=== PATIENT | female | born 2000 | race Caucasian/White ===

== ENCOUNTER 2022-10-29 02:00 | Emergency (ER) | payer SELFPAY ==
[~2022-10-29] VITALS: Ht 146 cm; Wt 81.6 kg
[2022-10-29] MEDS ORDERED: ONDANSETRON 4 MG (ZOFRAN) ORAL DISSOLVE TAB PO STA (02:28)
[2022-10-29] MEDS ORDERED: IBUPROFEN 800 MG (MOTRIN) TAB PO ONE (02:30)
--- NOTE | 2022-10-29 02:34 | ED Cough/URI ---
General Chief Complaint: Fever-Adult/Adol Stated Complaint: FEVER Nursing Triage Note: PATIENT COMPLAINT OF FEVER AROUND 103 AT HOME. STATES SHE TOOK TYLENOL AT MIDNIGHT. STATES SHE HAS BEEN AROUND PEOPLE THIS HOLIDAY WHO WERE SICK. Source: patient Exam Limitations: no limitations History of Present Illness Date Seen by Provider: Oct 29, 2022 Time Seen by Provider: 02:17 Initial Comments 22-year-old female patient complaining of fever up to 103.7, nasal congestion, sore throat, dry cough, headache and myalgia for the last 24 hours associated with diarrhea and 3 episodes of vomiting. Patient states she was not able to tolerate Tylenol and her temperature went up to 103.7 and decided to come to ER. Patient has sick contacts at home and recently attended [employer] parties with reported sick people after the republican. Patient denies , shortness of breath, earache, urinary symptoms. Severity/Quality: dry cough Associated Symptoms: cough, fever/chills, headache, muscle aches, nasal congestion, sore throat Allergies and Home Medications Allergies Coded Allergies: No Known Drug Allergies (Unverified , 10/29/22) Patient Home Medication List Home Medication List Reviewed: Yes Review of Systems Review of Systems Constitutional: see HPI EENTM: see HPI Respiratory: see HPI Cardiovascular: see HPI Gastrointestinal: see HPI Genitourinary: see HPI Musculoskeletal: see HPI Skin: see HPI Psychiatric/Neurological: See HPI Hematologic/Lymphatic: See HPI Immunological/Allergic: see HPI All Other Systems Reviewed Negative Unless Noted: Yes Past Iwubbum-Zhpmih-Ckgkft Hx Patient Social History Tobacco Use?: No Use of E-Cig and/or Vaping dev: No Substance use?: Yes Substance type: Marijuana Substance frequency: Couple times a week Immunizations Up To Date Influenza Vaccine Up-to-Date: No; Not Current First/Initial COVID19 Vaccinat: no Second COVID19 Vaccination Maycol: no Physical Exam Vital Signs - First Documented 10/29/22 02:10 Temp 38.2 Pulse 125 Resp 20 B/P (MAP) 151/85 (107) O2 Delivery Room Air Capillary Refill : Less Than 3 Seconds Height: '" Weight: lbs. oz. kg; 38.00 BMI Method: General Appearance: WD/WN, mild distress Eyes: Bilateral Eye Normal Inspection, Bilateral Eye PERRL, Bilateral Eye EOMI HEENT: PERRL/EOMI, normal ENT inspection, TMs normal, pharyngeal erythema, other (Nasal congestion) Neck: non-tender, full range of motion, supple, normal inspection Respiratory: chest non-tender, lungs clear, normal breath sounds, no respiratory distress, no accessory muscle use Cardiovascular: no edema, no gallop, no JVD, no murmur, tachycardia Gastrointestinal: normal bowel sounds, non tender, soft, no organomegaly, no pulsatile mass Extremities: normal range of motion, non-tender Neurologic/Psychiatric: no motor/sensory deficits, alert, normal mood/affect, oriented x 3 Skin: normal color, warm/dry Lymphatic: no adenopathy Progress/Results/Core Measures Suspected Sepsis SIRS Temperature: Pulse: 125 Respiratory Rate: 20 Blood Pressure 151 /85 Mean: 107 Results/Orders Lab Results Laboratory Tests Test 10/29/22 02:14 Range/Units Influenza Type A (RT-PCR) Detected H Not Detecte Influenza Type B (RT-PCR) Not Detected Not Detecte SARS-CoV-2 RNA (RT-PCR) Not Detected Not Detecte My Orders Orders - RONNA CORBETT MD Covid 19 Inhouse Test (10/29/22 02:15) Influenza A And B By Pcr (10/29/22 02:15) Isolation Central Supply Req (10/29/22 02:15) Ondansetron Oral Dissolve Tab (Zofran (10/29/22 02:28) Ibuprofen Tablet (Motrin Tablet) (10/29/22 02:30) Rx-Oseltamivir Caps (Rx-Tamiflu Caps) (10/29/22 02:48) Rx-Ondansetron Po (Rx-Zofran Po) (10/29/22 02:48) Medications Given in ED Current Medications Medications Dose Ordered Sig/Tona Route Start Time Stop Time Status Last Admin Dose Admin Ibuprofen 800 mg ONCE ONCE PO 10/29/22 02:30 10/29/22 02:31 DC 10/29/22 02:33 800 MG Vital Signs/I&O 10/29/22 02:10 Temp 38.2 Pulse 125 Resp 20 B/P (MAP) 151/85 (107) O2 Delivery Room Air Capillary Refill : Less Than 3 Seconds 2 Blood Pressure Mean: 107 Progress Note : Progress Note 22-year-old female patient with reported nausea, vomiting, diarrhea, fever up to 103.7, nasal congestion and sore throat, dry cough, headache and myalgia for the last 24 hours with temperature of 100.7 and on arrival to ER. Patient treated with Zofran and ibuprofen in ER. Patient had positive flu test and Tamiflu an Zofran was dispensed . Patient advised to increase fluid intake and take alternate Tylenol and ibuprofen. Departure Impression Primary Impression: Influenza A Additional Impressions: Cough Qualified Codes: R05.1 - Acute cough Fever Qualified Codes: R50.81 - Fever presenting with conditions classified elsewhere Disposition: 01 HOME, SELF-CARE Condition: Improved Departure-Patient Inst. Decision time for Depature: 02:51 Referrals: NO,LOCAL PHYSICIAN (PCP/Family) Primary Care Physician Patient Instructions: Flu, Adult (DC), Cough in Adults, Cough, Adult ED, Fever, Adult (DC) Add. Discharge Instructions: Take Tylenol and ibuprofen alternate every 4 hours for fever and pain Drink plenty of liquid Follow-up with your primary care physician return to ER as needed All discharge instructions reviewed with patient and/or family. Voiced understanding. RONNA CORBETT MD Oct 29, 2022 02:34
[2022-10-29] MEDS ORDERED: RX-ONDANSETRON 4 MG ODT (ZOFRAN) PPK #4 PO STA (02:48)
[2022-10-29] MEDS ORDERED: RX-OSELTAMIVIR 75 MG (TAMIFLU) BOX OF 10 PO STA (02:48)
[2022-10-29 02:55] VITALS: BP 151/85
== END 2022-10-29 03:03 | disposition home or self-care (01) ==
LOC: ER FS 02:06
DX: J10.1 Influenza due to other identified influenza virus with other respiratory manifestations (principal); Z20.822 Contact with and (suspected) exposure to COVID-19; Z28.310 Unvaccinated for COVID-19
CPT/HCPCS: 87636